=== PATIENT | female | born 1940 | race Caucasian/White ===

== ENCOUNTER 2020-10-17 08:12 | Outpatient (REF) | payer MEDICARE, SELFPAY ==
--- NOTE | ~2020-10-17 | MM_ITS ---
EXAMINATION: MM SCREENING DIGITAL BREAST TOMOSYNTHESIS, BILATERAL CLINICAL INFORMATION: Screening. Asymptomatic. The lifetime risk of breast cancer based on the Tyrer-Cuzick Model is 1%. COMPARISON: Mammography: 09/08/2019, 08/07/2018 TECHNIQUE: Digital breast tomosynthesis is performed in both the craniocaudal and mediolateral oblique views along with computer-aided detection (CAD). Synthesized 2D images are generated from the tomosynthesis. FINDINGS: There are scattered areas of fibroglandular density (ACR BI-RADS breast composition Category b). There are no significant masses, abnormal calcifications, or other abnormalities. Parenchymal pattern is similar to prior studies. No significant changes. MM/MM tomosynthesis screening BI IMPRESSION: No mammographic evidence of malignancy. ASSESSMENT: BI-RADS 1: Negative RECOMMENDATION: Routine annual mammography screening. This patient's information was entered into a reminder system with a target due date for their next mammogram.
== END 2020-10-17 08:13 | disposition home or self-care (01) ==
LOC: HO.MAMMO 08:12
PROVIDERS: Visit Provider Internal Medicine
DX: Z12.31 Encounter for screening mammogram for malignant neoplasm of breast (principal)
CPT/HCPCS: 77063; 77067

== ENCOUNTER 2021-10-18 08:23 | Outpatient (REF) | payer MEDICARE, SELFPAY ==
--- NOTE | ~2021-10-18 | MM_ITS ---
EXAMINATION: MM SCREENING DIGITAL BREAST TOMOSYNTHESIS, BILATERAL CLINICAL INFORMATION: Screening. Asymptomatic. The lifetime risk of breast cancer based on the Tyrer-Cuzick Model is 2%. COMPARISON: Mammography: 10/17/2020, 09/08/2019, 08/07/2018 TECHNIQUE: Digital breast tomosynthesis is performed in both the craniocaudal and mediolateral oblique views along with computer-aided detection (CAD). Synthesized 2D images are generated from the tomosynthesis. FINDINGS: There are scattered areas of fibroglandular density (ACR BI-RADS breast composition Category b). There are no significant masses, abnormal calcifications, or other abnormalities. Parenchymal pattern is similar to prior studies. There is no developing density or architectural abnormality. The axilla and skin contours are unremarkable. No significant changes. MM/MM tomosynthesis screening BI IMPRESSION: No mammographic evidence of malignancy. ASSESSMENT: BI-RADS 1: Negative RECOMMENDATION: Routine annual mammography screening. This patient's information was entered into a reminder system with a target due date for their next mammogram.
== END 2021-10-18 08:24 | disposition home or self-care (01) ==
LOC: HO.MAMMO 08:23
PROVIDERS: Visit Provider Internal Medicine
DX: Z12.31 Encounter for screening mammogram for malignant neoplasm of breast (principal)
CPT/HCPCS: 77063; 77067

== ENCOUNTER 2022-06-14 10:59 | Emergency (ER) | payer MEDICARE, SELFPAY ==
--- NOTE | 2022-06-14 11:08 | ED.CPR ---
HPI - CPR General Chief Complaint: Cardiac Arrest/CPR Stated Complaint: CARDIAC ARREST Time Seen by Provider: 06/14/22 11:05 Source: family (Patient's ) and EMS Mode of arrival: EMS Limitations: other (Cardiac arrest) History of Present Illness HPI narrative: 82-year-old female with a history of COPD who was brought to emergency department in cardiac arrest. According to her the patient has COPD and has been feeling short of breath for several days. He tried to encourage her to go to the emergency department but she refused. The when out of the house for approximately 30 minutes and when he came home he found the patient lying face down on the bathroom floor. There was blood on the floor as well. He called 911. Paramedics state that there was blood on the floor as well and they thought that possibly the patient vomited blood. The the patient was found to be in asystole with no palpable pulses and no spontaneous respirations. She was intubated by the paramedics and there was blood that came out of the endotracheal tube. The paramedics did multiple rounds of epinephrine and CPR for least 20 minutes. The patient had no return of spontaneous circulation and the paramedics called me to terminate the rest in the field. The patient was getting CPR through a Robby device. Once the paramedics showed up Robby device the patient was in atrial fibrillation so they continued the resuscitation. Patient got amiodarone 300 mg IV and was defibrillated. They continued CPR with a Robby device and gave the patient epinephrine and transported the patient to the emergency department. On arrival to the emergency department the patient's pupils were fixed and dilated. There was bright red blood coming out of the endotracheal tube at around her mouth. We did 1 round of epinephrine and continued CPR with a Robby device. The patient had no palpable pulses and was asystolic and she resuscitation was terminated at 11:04 a.m.. Patient's family was here in the emergency department I did inform them of the patient's . This is a natural most likely secondary to respiratory failure from her COPD therefore did not contact the director medical surgical. When the endotracheal tube was removed the patient was noted to have a large laceration to her lip and this may explain where the blood in her mouth and endotracheal tube was coming from. Related Data Allergies Allergy/AdvReac Type Severity Reaction Status Date / Time No Known Allergies Allergy Unverified 03/10/20 15:51 [No Known Allergies*] Review of Systems Review of Systems: Yes unobtainable due to endotracheal tube [facility] Past Medical History [facility] Narrative: Past medical history: COPD. Social history: Patient lives with her . Social History Social History Advance Directives: No Advance Directives Information Provided: No Physical Exam Const: Other: Elderly female patient, intubated, there is blood on her face and blood coming of the endotracheal tube. The blood is bright red. She has no spontaneous movement. No spontaneous respiratory effort. VT is being performed by a Robby device HEENT: Other: Normal cephalic, atraumatic. Patient does have a laceration to her lower lip Eyes: Other: Pupils are fixed and dilated, not reactive to light Resp: Other: Breath sounds symmetric with bag-valve mask ventilation through the endotracheal tube Cardio: Other: No heart sounds GI: Other: Abdomen is distended, no bowel sounds Neuro: Other: No spontaneous movement Extrem: Other: No trauma Course Course Course Narrative: 82-year-old female with history of COPD who was complaining of increasing shortness of breath for 2 days but refused to go to the emergency department according to her . Patient was left alone for approximately 30 minutes and when the returned he found her unresponsive lying prone on the bathroom floor with blood around her. This most likely was coming from a injury to lip from the fall. Paramedics initially found her to be asystolic, she was intubated and was given multiple rounds of epinephrine, CPR was performed via Robby device. Paramedics initially wanted to terminate the resuscitation but the patient then developed atrial fibrillation. Patient was treated with amiodarone, defibrillation and continued CPR pain. Presentation to the emergency department patient was asystolic we did give 1 round of epinephrine and continued CPR with a Robby device with no change in her rhythm. She remained asystolic. The resuscitation had gone on for approximately 40 minutes therefore decided to terminate the resuscitation and the patient was pronounced 11:04. cop examiner was not contacted since I believe the cause of was natural. Medical Decision Making Lab Data Labs: Lab Results 06/14/22 Range/Units 11:00 POC Glucose 76 (60-115) mg/dL Critical Care Time Critical Care Time Critical Care Time: Yes Total Critical Care Time: 30 Attestation: Critical Care: The patient was critically ill with a high probability of imminent or life threatening deterioration. I spent greater than 30 minutes of discontinuous time evaluating the patient,delivering critical care at the bedside, discussing and evaluating pertinent data with nursing staff. Critical care time does not include time spent performing separately billable procedures or teaching. Total time spent performing critical care was 30 minutes. Discharge Plan Discharge Clinical Impression: COPD exacerbation, Cardiac arrest due to respiratory disorder Patient Disposition:
--- NOTE | 2022-06-14 11:26 | PC.NURSE ---
[facility] notified. Case # [id number]
--- NOTE | 2022-06-14 11:43 | MHC.EDTECH ---
[phone] Baldev Waldrop's office. Medical Imaging Director answers the phone. I told her I was calling about the of one of their patients. She asked for name, date of and TOD. I gave her our extension (at her request) in case she needed further information.
[2022-06-14 13:08] LABS: Glucose, Whole Blood 76 mg/dL (60-115)
--- NOTE | 2022-06-14 15:01 | ECG_ITS ---
Test Reason : cardiac arrest Blood Pressure : / mmHG Vent. Rate : 171 BPM Atrial Rate : 072 BPM P-R Int : 000 ms QRS Dur : 054 ms QT Int : 248 ms P-R-T Axes : 000 230 005 degrees QTc Int : 418 ms Poor data quality Undetermined rhythm Low voltage Indeterminate axis Ventricular bigeminy Abnormal ECG When compared with ECG of 29-SEP-2017 04:09, Current undetermined rhythm precludes rhythm comparison, needs review low voltage V bigeminy Referred By: Boris Fonseca Electronically Signed By:Ranjit Bailon
== END 2022-06-14 15:06 | disposition expired ==
PROVIDERS: Emergency Provider Emergency Medicine Emergency Medical Services; PCP Internal Medicine
DX: J44.1 Chronic obstructive pulmonary disease with (acute) exacerbation (principal); I46.8 Cardiac arrest due to other underlying condition
CPT/HCPCS: 82947; 93005; 99283; 99284